=== PATIENT | male | born 1990 | race American Indian/Alaskan Native ===

== ENCOUNTER 2019-01-26 19:23 | Emergency (ER) | payer OTHER ==
--- NOTE | 2019-01-27 00:30 | Emergency Department Report ---
ED General Adult HPI - General Chief complaint: Earache Stated complaint: PAIN IN BOTH EARS/DIFFICULT HEARING Time Seen by Provider: 01/26/19 22:18 Source: patient Mode of arrival: Ambulatory Limitations: No Limitations - History of Present Illness Initial comments: 28-year-old -[place] male presents emergency department complaining of pain to both of his ears off and on for about the last week. States the pain is very vague and mild and dull in the switches from [id number]. She does have some issues with hearing. States today stating that he feels like he is under water with this. He is with the last week as well. Reports having some sinus pressure and dull headache off and on, but no sore throat, hemoptysis, hematemesis, ear drainage, ear trauma, presyncope, or tinnitus. -: Gradual Radiation: non-radiation Severity scale (0 -10): 6 Quality: dull Consistency: constant Improves with: none Worsens with: none Associated Symptoms: denies: confusion, chest pain, cough, diaphoresis, fever/chills, loss of appetite, malaise, nausea/vomiting, syncope, weakness - Related Data Previous Rx's Medication Instructions Recorded Last Taken Type Amoxicillin/Potassium Clav 1 each PO BID #20 tablet 01/27/19 Unknown Rx [Augmentin 875-125 Tablet] Cetirizine HCl/Pseudoephedrine 1 each PO BID #14 tab.er.12h 01/27/19 Unknown Rx [Zyrtec-D Tablet] predniSONE [Deltasone] 20 mg PO QDAY #5 tab 01/27/19 Unknown Rx Allergies Allergy/AdvReac Type Severity Reaction Status Date / Time No Known Allergies Allergy Unverified 01/26/19 19:26 ED Review of Systems ROS: Stated complaint: PAIN IN BOTH EARS/DIFFICULT HEARING Other details as noted in HPI Constitutional: denies: chills, fever Eyes: denies: eye pain, eye discharge, vision change ENT: ear pain. denies: throat pain Respiratory: denies: cough, shortness of breath, wheezing Cardiovascular: denies: chest pain, palpitations Endocrine: no symptoms reported Gastrointestinal: denies: abdominal pain, nausea, diarrhea Genitourinary: denies: urgency, dysuria Musculoskeletal: denies: back pain, joint swelling, arthralgia Skin: denies: rash, lesions Neurological: denies: headache, weakness, paresthesias Psychiatric: denies: anxiety, depression Hematological/Lymphatic: denies: easy bleeding, easy bruising ED Past Medical Hx - Past Medical History Previous Medical History?: Yes Hx Asthma: Yes - Surgical History Past Surgical History?: No - Social History Smoking Status: Former Smoker Substance Use Type: None - Medications Home Medications: Home Medications Medication Instructions Recorded Confirmed Last Taken Type Amoxicillin/Potassium Clav 1 each PO BID #20 tablet 01/27/19 Unknown Rx [Augmentin 875-125 Tablet] Cetirizine HCl/Pseudoephedrine 1 each PO BID #14 tab.er.12h 01/27/19 Unknown Rx [Zyrtec-D Tablet] predniSONE [Deltasone] 20 mg PO QDAY #5 tab 01/27/19 Unknown Rx ED Physical Exam - General Limitations: No Limitations General appearance: alert, in no apparent distress - Head Head exam: Present: atraumatic, normocephalic, normal inspection - Eye Eye exam: Present: normal appearance, PERRL, other (negative. Funduscopic examination). Absent: scleral icterus, conjunctival injection, nystagmus, periorbital swelling, periorbital tenderness Pupils: Present: normal accommodation. Absent: unequal - ENT ENT exam: Present: normal exam, mucous membranes moist, TM's normal bilaterally, other (tympanic membranes bulging bilaterally, right greater than left, with cold and flu was sitting behind the right eardrum. Some sinus pressure with percussion to the right maxillary region. No lymphadenopathy. Posterior pharynx is clear. Airway is patent. Tongue and uvula midline, normal size. No drooling.) - Neck Neck exam: Present: normal inspection, full ROM. Absent: tenderness, lymphadenopathy - Respiratory Respiratory exam: Present: normal lung sounds bilaterally. Absent: respiratory distress, wheezes, rales, chest wall tenderness, accessory muscle use, decreased breath sounds - Cardiovascular Cardiovascular Exam: Present: regular rate, normal rhythm. Absent: systolic murmur, diastolic murmur, rubs, gallop - GI/Abdominal GI/Abdominal exam: Present: soft, normal bowel sounds. Absent: tenderness, guarding, hyperactive bowel sounds, hypoactive bowel sounds, organomegaly, mass, bruit - Rectal Rectal exam: Present: deferred - Extremities Exam Extremities exam: Present: normal inspection, full ROM, normal capillary refill. Absent: pedal edema - Back Exam Back exam: Present: normal inspection, CVA tenderness (R), CVA tenderness (L). Absent: muscle spasm - Neurological Exam Neurological exam: Present: alert, oriented X3, CN II-XII intact, normal gait - Psychiatric Psychiatric exam: Present: normal affect, normal mood - Skin Skin exam: Present: warm, dry, intact, normal color. Absent: rash ED Course Vital Signs 01/26/19 01/26/19 19:29 19:56 Temperature 97.8 F 97.8 F Pulse Rate 88 83 Respiratory 18 18 Rate Blood Pressure 139/84 139/84 O2 Sat by Pulse 100 100 Oximetry Critical care attestation.: If time is entered above; I have spent that time in minutes in the direct care of this critically ill patient, excluding procedure time. ED Disposition Clinical Impression: Otalgia, Cephalgia Disposition: DC-01 TO HOME OR SELFCARE Is pt being admited?: No Does the pt Need Aspirin: No Condition: Stable Instructions: Acute Headache (ED), Earache (ED) Prescriptions: Amoxicillin/Potassium Clav [Augmentin 875-125 Tablet] 1 each PO BID #20 tablet Cetirizine HCl/Pseudoephedrine [Zyrtec-D Tablet] 1 each PO BID #14 tab.er.12h predniSONE [Deltasone] 20 mg PO QDAY #5 tab Referrals: PRIMARY CARE, [Primary Care Provider] - 3-5 Days
== END 2019-01-27 01:09 | disposition home or self-care (01) ==
LOC: ED 19:23
CPT/HCPCS: 99282